=== PATIENT | female | born 1985 | race Caucasian/White ===

== ENCOUNTER 2023-06-06 06:31 | Day surgery (SDC) | payer OTHER ==
[2023-06-04 10:55] VITALS: BMI 22.1
[2023-06-06] MEDS ORDERED: KETAMINE HCL 500 MG/10 ML VIAL ONE (07:24)
[2023-06-06 08:29] VITALS: BP 128/63; PULSE 64; RESP 18; TEMP 97.1
== END 2023-06-06 08:45 | disposition home or self-care (01) ==
LOC: FECT 06:31
PROVIDERS: ATTEND Student in an Organized Health Care Education/Training Program
PROC: GZB4ZZZ Other Electroconvulsive Therapy (ICD-10-PCS; principal; 2023-06-06 07:45)
DX: F32.A Depression, unspecified (principal)
CPT/HCPCS: 81025; 90870; 94760

== ENCOUNTER 2023-06-10 08:32 | Day surgery (SDC) | payer OTHER ==
[2023-06-06 16:23] VITALS: BMI 22.1
[2023-06-10 08:59] VITALS: RESP 16
[2023-06-10] MEDS ORDERED: KETAMINE HCL 500 MG/10 ML VIAL ONE (09:36)
[2023-06-10] MEDS ORDERED: PROMETHAZINE HCL 25 MG/1 ML VIAL IVPB PRN (10:07)
[2023-06-10] MEDS ORDERED: ACETAMINOPHEN 325 MG TABLET (FP) PO PRN (10:07)
[2023-06-10] MEDS ORDERED: LACTATED RINGERS SOLUTION 1,000 ML IV SCH (10:15)
[2023-06-10] MEDS ORDERED: ACETAMINOPHEN 325 MG TABLET (FP) ONE (10:48)
[2023-06-10] MEDS ORDERED: ACETAMINOPHEN 325 MG TABLET (FP) PO ONE (10:50)
[2023-06-10 10:58] VITALS: BP 122/67; TEMP 97.4
[2023-06-10 11:31] VITALS: PULSE 60
== END 2023-06-10 11:30 | disposition home or self-care (01) ==
LOC: FECT 08:32
PROVIDERS: ATTEND Psychiatry & Neurology Psychiatry
PROC: GZB4ZZZ Other Electroconvulsive Therapy (ICD-10-PCS; principal; 2023-06-10 09:48)
DX: F33.2 Major depressive disorder, recurrent severe without psychotic features (principal)
CPT/HCPCS: 81025; 90870; 94760

== ENCOUNTER 2023-06-12 09:15 | Day surgery (SDC) | payer OTHER ==
[2023-05-23 17:26] VITALS: BMI 22.1
[2023-06-12 09:37] VITALS: RESP 18
[2023-06-12] MEDS ORDERED: KETAMINE HCL 500 MG/10 ML VIAL ONE (11:17)
[2023-06-12] MEDS ORDERED: ONDANSETRON 4 MG/2 ML VIAL ONE (11:17)
[2023-06-12] MEDS ORDERED: SUCCINYLCHOLINE CHLORIDE 200 MG/10 ML SYRINGE ONE (11:17)
[2023-06-12] MEDS ORDERED: KETOROLAC TROMETHAMINE 30 MG/1 ML VIAL ONE (11:17)
[2023-06-12] MEDS ORDERED: PROPOFOL 20 ML ONE (11:17)
[2023-06-12] MEDS ORDERED: GLYCOPYRROLATE 0.2 MG/1 ML VIAL ONE (11:21)
[2023-06-12] MEDS ORDERED: ACETAMINOPHEN 325 MG TABLET (FP) ONE (12:10)
[2023-06-12] MEDS ORDERED: ACETAMINOPHEN 325 MG TABLET (FP) PO PRN (12:19)
[2023-06-12] MEDS ORDERED: LACTATED RINGERS SOLUTION 1,000 ML IV SCH (12:30)
[2023-06-12 12:37] VITALS: TEMP 98
[2023-06-12 13:51] VITALS: BP 112/75; PULSE 59
== END 2023-06-12 13:00 | disposition home or self-care (01) ==
LOC: FECT 09:15
PROVIDERS: ATTEND Psychiatry & Neurology Psychiatry
PROC: GZB4ZZZ Other Electroconvulsive Therapy (ICD-10-PCS; principal; 2023-06-12 11:23)
DX: F32.A Depression, unspecified (principal)
CPT/HCPCS: 90870; 94760

== ENCOUNTER 2023-06-13 07:47 | Day surgery (SDC) | payer OTHER ==
[2023-06-09 08:26] VITALS: BMI 22.1
[2023-06-13] MEDS ORDERED: KETAMINE HCL 500 MG/10 ML VIAL ONE (09:31)
[2023-06-13 10:21] VITALS: TEMP 98
[2023-06-13] MEDS: ACETAMINOPHEN 325 MG TABLET (FP) ONE ×2 (10:37→10:55)
[2023-06-13] MEDS ORDERED: ACETAMINOPHEN 325 MG TABLET (FP) PO ONE (10:54)
[2023-06-13 11:29] VITALS: RESP 18
[2023-06-13 11:30] VITALS: BP 124/64; PULSE 64
== END 2023-06-13 11:20 | disposition home or self-care (01) ==
LOC: FECT 07:47
PROVIDERS: ATTEND Psychiatry & Neurology Psychiatry
PROC: GZB4ZZZ Other Electroconvulsive Therapy (ICD-10-PCS; principal; 2023-06-13 09:46)
DX: F33.2 Major depressive disorder, recurrent severe without psychotic features (principal)
CPT/HCPCS: 90870; 94760

== ENCOUNTER 2023-06-17 11:15 | Day surgery (SDC) | payer OTHER ==
[2023-06-17] MEDS ORDERED: KETAMINE HCL 500 MG/10 ML VIAL ONE (12:12)
[2023-06-17 13:04] VITALS: BMI 22.1
[2023-06-17 13:07] VITALS: RESP 19; TEMP 98.3
[2023-06-17 13:16] VITALS: BP 120/68; PULSE 67
== END 2023-06-17 13:40 | disposition home or self-care (01) ==
LOC: FECT 11:15
PROVIDERS: ATTEND Psychiatry & Neurology Psychiatry
PROC: GZB4ZZZ Other Electroconvulsive Therapy (ICD-10-PCS; principal; 2023-06-17 12:23)
DX: F33.2 Major depressive disorder, recurrent severe without psychotic features (principal)
CPT/HCPCS: 81025; 90870; 94760

== ENCOUNTER 2023-06-19 09:54 | Day surgery (SDC) | payer OTHER ==
[2023-05-29 17:23] VITALS: BMI 20.5
[2023-06-19] MEDS ORDERED: KETAMINE HCL 500 MG/10 ML VIAL ONE (11:10)
[2023-06-19 12:28] VITALS: RESP 18; TEMP 98
[2023-06-19 13:08] VITALS: BP 108/68; PULSE 61
== END 2023-06-19 12:45 | disposition home or self-care (01) ==
LOC: FECT 09:54
PROVIDERS: ATTEND Psychiatry & Neurology Psychiatry
PROC: GZB4ZZZ Other Electroconvulsive Therapy (ICD-10-PCS; principal; 2023-06-19 11:25)
DX: F32.A Depression, unspecified (principal)
CPT/HCPCS: 90870; 94760

== ENCOUNTER 2023-06-20 08:18 | Day surgery (SDC) | payer OTHER ==
[2023-06-13 09:51] VITALS: BMI 22.1
[2023-06-20] MEDS ORDERED: KETAMINE HCL 500 MG/10 ML VIAL ONE (09:34)
[2023-06-20 10:39] VITALS: RESP 16; TEMP 97.6
[2023-06-20 10:54] VITALS: BP 139/78; PULSE 74
== END 2023-06-20 11:10 | disposition home or self-care (01) ==
LOC: FECT 08:18
PROVIDERS: ATTEND Psychiatry & Neurology Psychiatry
PROC: GZB4ZZZ Other Electroconvulsive Therapy (ICD-10-PCS; principal; 2023-06-20 09:42)
DX: F32.A Depression, unspecified (principal)
CPT/HCPCS: 90870; 94760

== ENCOUNTER 2023-06-26 08:01 | Day surgery (SDC) | payer OTHER ==
[2023-06-20 07:07] VITALS: BMI 20.5
[2023-06-26] MEDS ORDERED: LACTATED RINGERS SOLUTION 1,000 ML IV SCH (10:30)
[2023-06-26 10:43] VITALS: TEMP 97.4
[2023-06-26 11:37] VITALS: BP 102/61; PULSE 58; RESP 19
== END 2023-06-26 11:10 | disposition home or self-care (01) ==
LOC: FECT 08:01
PROVIDERS: ATTEND Psychiatry & Neurology Psychiatry
PROC: GZB4ZZZ Other Electroconvulsive Therapy (ICD-10-PCS; principal; 2023-06-26 09:45)
DX: F32.A Depression, unspecified (principal)
CPT/HCPCS: 90870; 94760

== ENCOUNTER 2023-07-01 09:48 | Day surgery (SDC) | payer OTHER ==
[2023-06-27 14:57] VITALS: BMI 20.5
[2023-07-01] MEDS ORDERED: LACTATED RINGERS SOLUTION 1,000 ML IV SCH (11:15)
[2023-07-01 12:50] VITALS: TEMP 98
[2023-07-01 13:32] VITALS: BP 110/68; PULSE 78; RESP 18
== END 2023-07-01 13:35 | disposition home or self-care (01) ==
LOC: FECT 09:48
PROVIDERS: ATTEND Student in an Organized Health Care Education/Training Program
PROC: GZB4ZZZ Other Electroconvulsive Therapy (ICD-10-PCS; principal; 2023-07-01 12:30)
DX: F33.2 Major depressive disorder, recurrent severe without psychotic features (principal)
CPT/HCPCS: 81025; 90870; 94760

== ENCOUNTER 2023-07-03 11:27 | Day surgery (SDC) | payer OTHER ==
[2023-06-30 12:21] VITALS: BMI 20.5
[2023-07-03] MEDS ORDERED: KETAMINE HCL 500 MG/10 ML VIAL ONE (12:43)
[2023-07-03] MEDS ORDERED: ONDANSETRON 4 MG/2 ML VIAL IVPUSH PRN (13:08)
[2023-07-03] MEDS ORDERED: LACTATED RINGERS SOLUTION 1,000 ML IV SCH (13:15)
[2023-07-03 13:58] VITALS: BP 130/66; PULSE 88; RESP 16; TEMP 97.8
== END 2023-07-03 14:02 | disposition home or self-care (01) ==
LOC: FECT 11:27
PROVIDERS: ATTEND Student in an Organized Health Care Education/Training Program
PROC: GZB4ZZZ Other Electroconvulsive Therapy (ICD-10-PCS; principal; 2023-07-03 12:55)
DX: F32.A Depression, unspecified (principal)
CPT/HCPCS: 90870; 94760

== ENCOUNTER 2023-07-08 12:12 | Day surgery (SDC) | payer OTHER ==
[2023-07-04 17:11] VITALS: BMI 20.5
[2023-07-08 14:35] VITALS: TEMP 97.5
[2023-07-08 15:09] VITALS: BP 104/45; PULSE 64; RESP 16
== END 2023-07-08 15:10 | disposition home or self-care (01) ==
LOC: FECT 12:12
PROVIDERS: ATTEND Psychiatry & Neurology Psychiatry
PROC: GZB4ZZZ Other Electroconvulsive Therapy (ICD-10-PCS; principal; 2023-07-08 14:10)
DX: F32.A Depression, unspecified (principal)
CPT/HCPCS: 81025; 90870; 94760

== ENCOUNTER 2023-07-11 09:11 | Day surgery (SDC) | payer OTHER ==
[2023-07-01 11:54] VITALS: BMI 20.5
[2023-07-11 09:29] VITALS: RESP 18
[2023-07-11] MEDS ORDERED: KETAMINE HCL 500 MG/10 ML VIAL ONE (11:18)
[2023-07-11 12:21] VITALS: PULSE 67; TEMP 97.4
[2023-07-11 13:01] VITALS: BP 112/64
== END 2023-07-11 13:01 | disposition home or self-care (01) ==
LOC: FECT 09:11
PROVIDERS: ATTEND Student in an Organized Health Care Education/Training Program
PROC: GZB4ZZZ Other Electroconvulsive Therapy (ICD-10-PCS; principal; 2023-07-11 11:27)
DX: F32.A Depression, unspecified (principal)
CPT/HCPCS: 90870; 94760

== ENCOUNTER 2023-07-15 09:16 | Day surgery (SDC) | payer OTHER ==
[2023-07-11 14:01] VITALS: BMI 20.5
[2023-07-15] MEDS ORDERED: PROPOFOL 20 ML ONE (10:57)
[2023-07-15] MEDS ORDERED: KETOROLAC TROMETHAMINE 30 MG/1 ML VIAL ONE (10:58)
[2023-07-15] MEDS ORDERED: ONDANSETRON 4 MG/2 ML VIAL ONE (10:58)
[2023-07-15] MEDS ORDERED: SUCCINYLCHOLINE CHLORIDE 200 MG/10 ML SYRINGE ONE (10:59)
[2023-07-15] MEDS ORDERED: GLYCOPYRROLATE 0.2 MG/1 ML VIAL ONE (11:05)
[2023-07-15 12:03] VITALS: RESP 19; TEMP 98.2
[2023-07-15 12:08] VITALS: BP 102/62; PULSE 58
== END 2023-07-15 12:05 | disposition home or self-care (01) ==
LOC: FECT 09:16
PROVIDERS: ATTEND Student in an Organized Health Care Education/Training Program
PROC: GZB4ZZZ Other Electroconvulsive Therapy (ICD-10-PCS; principal; 2023-07-15 11:09)
DX: F33.2 Major depressive disorder, recurrent severe without psychotic features (principal)
CPT/HCPCS: 81025; 90870; 94760

== ENCOUNTER 2023-07-22 09:03 | Day surgery (SDC) | payer OTHER ==
[2023-07-16 07:01] VITALS: BMI 20.5
[2023-07-22] MEDS ORDERED: KETAMINE HCL 500 MG/10 ML VIAL ONE (09:58)
[2023-07-22 11:34] VITALS: RESP 18
[2023-07-22 11:48] VITALS: BP 133/79; PULSE 63; TEMP 98
== END 2023-07-22 11:50 | disposition home or self-care (01) ==
LOC: FECT 09:03
PROVIDERS: ATTEND Student in an Organized Health Care Education/Training Program
PROC: GZB4ZZZ Other Electroconvulsive Therapy (ICD-10-PCS; principal; 2023-07-22 10:17)
DX: F32.A Depression, unspecified (principal)
CPT/HCPCS: 81025; 90870; 94760

== ENCOUNTER 2023-07-29 12:38 | Day surgery (SDC) | payer OTHER ==
[2023-07-29 12:56] VITALS: BMI 20.5
[2023-07-29] MEDS ORDERED: KETAMINE HCL 100 MG/ML - 5ML VIAL ONE (14:21)
[2023-07-29] MEDS ORDERED: GLYCOPYRROLATE 0.2 MG/1 ML VIAL ONE (14:34)
[2023-07-29 15:38] VITALS: RESP 18; TEMP 97.4
[2023-07-29 15:57] VITALS: BP 120/74; PULSE 68
== END 2023-07-29 16:03 | disposition home or self-care (01) ==
LOC: FECT 12:38
PROVIDERS: ATTEND Psychiatry & Neurology Psychiatry
PROC: GZB4ZZZ Other Electroconvulsive Therapy (ICD-10-PCS; principal; 2023-07-29 14:30)
DX: F33.2 Major depressive disorder, recurrent severe without psychotic features (principal)
CPT/HCPCS: 81025; 90870; 94760

== ENCOUNTER 2023-08-01 10:27 | Day surgery (SDC) | payer OTHER ==
[2023-07-23 10:47] VITALS: BMI 20.5
[2023-08-01] MEDS ORDERED: KETAMINE HCL 500 MG/10 ML VIAL ONE (12:22)
[2023-08-01] MEDS ORDERED: GLYCOPYRROLATE 0.2 MG/1 ML VIAL ONE (12:22)
[2023-08-01] MEDS ORDERED: SUCCINYLCHOLINE CHLORIDE 200 MG/10 ML SYRINGE ONE (12:22)
[2023-08-01] MEDS ORDERED: KETOROLAC TROMETHAMINE 30 MG/1 ML VIAL ONE (12:22)
[2023-08-01] MEDS ORDERED: ONDANSETRON 4 MG/2 ML VIAL ONE (12:22)
[2023-08-01] MEDS ORDERED: PROPOFOL 20 ML ONE (12:22)
[2023-08-01] MEDS ORDERED: ALPRAZolam 1 MG TABLET ONE (13:19)
[2023-08-01] MEDS ORDERED: ALPRAZolam 1 MG TABLET PO STA (14:00)
[2023-08-01 14:22] VITALS: RESP 18; TEMP 98.1
[2023-08-01 14:37] VITALS: BP 115/72; PULSE 84
== END 2023-08-01 14:40 | disposition home or self-care (01) ==
LOC: FECT 10:27
PROVIDERS: ATTEND Student in an Organized Health Care Education/Training Program
PROC: GZB4ZZZ Other Electroconvulsive Therapy (ICD-10-PCS; principal; 2023-08-01 12:28)
DX: F33.2 Major depressive disorder, recurrent severe without psychotic features (principal)
CPT/HCPCS: 90870; 94760

== ENCOUNTER 2023-08-05 11:00 | Day surgery (SDC) | payer OTHER ==
[2023-08-04 08:05] VITALS: BMI 20.5
[2023-08-05] MEDS ORDERED: KETAMINE HCL 100 MG/ML - 5ML VIAL ONE (12:39)
[2023-08-05 13:42] VITALS: RESP 16; TEMP 98.5
[2023-08-05 13:54] VITALS: BP 113/65; PULSE 68
== END 2023-08-05 14:11 | disposition home or self-care (01) ==
LOC: FECT 11:00
PROVIDERS: ATTEND Student in an Organized Health Care Education/Training Program
PROC: GZB4ZZZ Other Electroconvulsive Therapy (ICD-10-PCS; principal; 2023-08-05 12:49)
DX: F32.A Depression, unspecified (principal)
CPT/HCPCS: 81025; 90870; 94760

== ENCOUNTER 2023-08-07 08:40 | Day surgery (SDC) | payer OTHER ==
[2023-08-05 16:46] VITALS: BMI 20.5
[2023-08-07] MEDS ORDERED: KETAMINE HCL 100 MG/ML - 5ML VIAL ONE ×2 (10:17→10:54)
[2023-08-07 11:42] VITALS: RESP 19; TEMP 98
[2023-08-07 11:54] VITALS: BP 102/59; PULSE 62
== END 2023-08-07 12:10 | disposition home or self-care (01) ==
LOC: FECT 08:40
PROVIDERS: ATTEND Student in an Organized Health Care Education/Training Program
PROC: GZB4ZZZ Other Electroconvulsive Therapy (ICD-10-PCS; principal; 2023-08-07 10:42)
DX: F33.2 Major depressive disorder, recurrent severe without psychotic features (principal)
CPT/HCPCS: 90870; 94760

== ENCOUNTER 2023-08-12 10:37 | Day surgery (SDC) | payer OTHER ==
[2023-08-08 11:32] VITALS: BMI 20.5
[2023-08-12] MEDS ORDERED: KETAMINE HCL 100 MG/ML - 5ML VIAL ONE (12:11)
[2023-08-12 12:57] VITALS: TEMP 98.6
[2023-08-12 14:15] VITALS: RESP 18
[2023-08-12 14:17] VITALS: BP 135/85; PULSE 77
== END 2023-08-12 14:00 | disposition home or self-care (01) ==
LOC: FECT 10:37
PROVIDERS: ATTEND Student in an Organized Health Care Education/Training Program
PROC: GZB4ZZZ Other Electroconvulsive Therapy (ICD-10-PCS; principal; 2023-08-12 12:27)
DX: F33.2 Major depressive disorder, recurrent severe without psychotic features (principal)
CPT/HCPCS: 81025; 90870; 94760

== ENCOUNTER 2023-08-15 10:14 | Day surgery (SDC) | payer OTHER ==
[2023-08-13 13:32] VITALS: BMI 20.5
[2023-08-15] MEDS ORDERED: KETAMINE HCL 100 MG/ML - 5ML VIAL ONE (13:27)
[2023-08-15] MEDS ORDERED: ONDANSETRON 4 MG/2 ML VIAL ONE (13:28)
[2023-08-15] MEDS ORDERED: KETOROLAC TROMETHAMINE 30 MG/1 ML VIAL ONE (13:28)
[2023-08-15] MEDS ORDERED: DEXAMETHASONE SOD PHOSPHATE 4 MG/1 ML VIAL ONE (13:28)
[2023-08-15] MEDS ORDERED: SUCCINYLCHOLINE CHLORIDE 200 MG/10 ML SYRINGE ONE (13:28)
[2023-08-15 15:00] VITALS: BP 116/67; PULSE 74; RESP 18; TEMP 97.4
== END 2023-08-15 14:55 | disposition home or self-care (01) ==
LOC: FECT 10:14
PROVIDERS: ATTEND Psychiatry & Neurology Psychiatry
PROC: GZB4ZZZ Other Electroconvulsive Therapy (ICD-10-PCS; principal; 2023-08-15 13:33)
DX: F33.2 Major depressive disorder, recurrent severe without psychotic features (principal)
CPT/HCPCS: 90870; 94760

== ENCOUNTER 2023-08-19 09:42 | Day surgery (SDC) | payer OTHER ==
[2023-08-19 08:22] VITALS: BMI 20.5
[2023-08-19 10:01] VITALS: RESP 19
[2023-08-19] MEDS ORDERED: KETAMINE HCL 100 MG/ML - 5ML VIAL ONE (10:48)
[2023-08-19] MEDS ORDERED: SUCCINYLCHOLINE CHLORIDE 200 MG/10 ML SYRINGE ONE (10:59)
[2023-08-19] MEDS ORDERED: ONDANSETRON 4 MG/2 ML VIAL IVPUSH PRN (11:25)
[2023-08-19] MEDS ORDERED: LACTATED RINGERS SOLUTION 1,000 ML IV SCH (11:30)
[2023-08-19 16:04] VITALS: BP 112/68; PULSE 64; TEMP 98.2
== END 2023-08-19 12:10 | disposition home or self-care (01) ==
LOC: FECT 09:42
PROVIDERS: ATTEND Psychiatry & Neurology Psychiatry
PROC: GZB4ZZZ Other Electroconvulsive Therapy (ICD-10-PCS; principal; 2023-08-19 11:01)
DX: F33.2 Major depressive disorder, recurrent severe without psychotic features (principal)
CPT/HCPCS: 81025; 90870; 94760

== ENCOUNTER 2023-08-22 07:47 | Day surgery (SDC) | payer OTHER ==
[2023-08-19 10:43] VITALS: BMI 20.5
[2023-08-22 12:15] VITALS: RESP 18
[2023-08-22 12:29] VITALS: BP 104/64; TEMP 98.2
[2023-08-22 12:32] VITALS: PULSE 61
== END 2023-08-22 12:30 | disposition home or self-care (01) ==
LOC: FECT 07:47
PROVIDERS: ATTEND Student in an Organized Health Care Education/Training Program
PROC: GZB4ZZZ Other Electroconvulsive Therapy (ICD-10-PCS; principal; 2023-08-22 11:09)
DX: F32.A Depression, unspecified (principal)
CPT/HCPCS: 90870; 94760

== ENCOUNTER 2023-08-26 08:21 | Day surgery (SDC) | payer OTHER ==
[2023-08-22 13:28] VITALS: BMI 20.5
[2023-08-26] MEDS ORDERED: KETAMINE HCL 100 MG/ML - 5ML VIAL ONE (09:58)
[2023-08-26 11:07] VITALS: PULSE 60; RESP 18
[2023-08-26 11:29] VITALS: BP 120/68; TEMP 98
== END 2023-08-26 11:29 | disposition home or self-care (01) ==
LOC: FECT 08:21
PROVIDERS: ATTEND Student in an Organized Health Care Education/Training Program
PROC: GZB4ZZZ Other Electroconvulsive Therapy (ICD-10-PCS; principal; 2023-08-26 10:13)
DX: F33.2 Major depressive disorder, recurrent severe without psychotic features (principal)
CPT/HCPCS: 81025; 90870; 94760

== ENCOUNTER 2023-08-29 09:15 | Day surgery (SDC) | payer OTHER ==
[2023-08-22 13:46] VITALS: BMI 20.5
[2023-08-29] MEDS ORDERED: KETAMINE HCL 100 MG/ML - 5ML VIAL ONE (10:05)
[2023-08-29] MEDS ORDERED: ONDANSETRON 4 MG/2 ML VIAL IVPUSH PRN (11:42)
[2023-08-29] MEDS ORDERED: LACTATED RINGERS SOLUTION 1,000 ML IV SCH (11:45)
[2023-08-29 12:01] VITALS: RESP 18; TEMP 97.9
[2023-08-29 12:22] VITALS: BP 130/77; PULSE 61
== END 2023-08-29 12:30 | disposition home or self-care (01) ==
LOC: FECT 09:15
PROVIDERS: ATTEND Student in an Organized Health Care Education/Training Program
PROC: GZB4ZZZ Other Electroconvulsive Therapy (ICD-10-PCS; principal; 2023-08-29 11:03)
DX: F33.2 Major depressive disorder, recurrent severe without psychotic features (principal)
CPT/HCPCS: 90870; 94760

== ENCOUNTER 2023-09-02 10:13 | Day surgery (SDC) | payer OTHER ==
[2023-08-29 15:33] VITALS: BMI 20.5
[2023-09-02] MEDS ORDERED: SUCCINYLCHOLINE CHLORIDE 200 MG/10 ML SYRINGE ONE (12:03)
[2023-09-02] MEDS ORDERED: KETAMINE HCL 100 MG/ML - 5ML VIAL ONE (12:03)
[2023-09-02 12:57] VITALS: RESP 16
[2023-09-02 13:07] VITALS: TEMP 97.8
[2023-09-02 13:09] VITALS: BP 119/74; PULSE 90
== END 2023-09-02 13:28 | disposition home or self-care (01) ==
LOC: FECT 10:13
PROVIDERS: ATTEND Psychiatry & Neurology Psychiatry
PROC: GZB4ZZZ Other Electroconvulsive Therapy (ICD-10-PCS; principal; 2023-09-02 12:07)
DX: F32.A Depression, unspecified (principal)
CPT/HCPCS: 81025; 90870; 94760

== ENCOUNTER 2023-09-05 06:38 | Day surgery (SDC) | payer OTHER ==
[2023-09-02 14:18] VITALS: BMI 20.5
[2023-09-05] MEDS ORDERED: KETAMINE HCL 100 MG/ML - 5ML VIAL ONE (07:50)
[2023-09-05 09:55] VITALS: BP 137/77; PULSE 68; RESP 20; TEMP 98.2
== END 2023-09-05 09:20 | disposition home or self-care (01) ==
LOC: FASU 06:38 → FECT 06:38
PROVIDERS: ATTEND Psychiatry & Neurology Psychiatry
PROC: GZB4ZZZ Other Electroconvulsive Therapy (ICD-10-PCS; principal; 2023-09-05 07:55)
DX: F33.2 Major depressive disorder, recurrent severe without psychotic features (principal)
CPT/HCPCS: 90870; 94760

== ENCOUNTER 2023-09-09 08:17 | Day surgery (SDC) | payer OTHER ==
[2023-09-05 09:55] VITALS: BMI 20.5
[2023-09-09 08:50] VITALS: TEMP 97.9
[2023-09-09] MEDS ORDERED: KETAMINE HCL 100 MG/ML - 5ML VIAL ONE (09:15)
[2023-09-09] MEDS ORDERED: ONDANSETRON 4 MG/2 ML VIAL IVPUSH PRN (09:19)
[2023-09-09] MEDS ORDERED: LACTATED RINGERS SOLUTION 1,000 ML IV SCH (09:30)
[2023-09-09 10:47] VITALS: PULSE 68
[2023-09-09 11:26] VITALS: BP 116/71; RESP 18
== END 2023-09-09 11:27 | disposition home or self-care (01) ==
LOC: FECT 08:17
PROVIDERS: ATTEND Student in an Organized Health Care Education/Training Program
PROC: GZB4ZZZ Other Electroconvulsive Therapy (ICD-10-PCS; principal; 2023-09-09 10:15)
DX: F33.2 Major depressive disorder, recurrent severe without psychotic features (principal)
CPT/HCPCS: 81025; 90870; 94760

== ENCOUNTER 2023-09-11 11:30 | Day surgery (SDC) | payer OTHER ==
[2023-09-09 12:22] VITALS: BMI 20.5
[2023-09-11] MEDS ORDERED: KETAMINE HCL 100 MG/ML - 5ML VIAL ONE (12:26)
[2023-09-11 13:28] VITALS: RESP 18; TEMP 98.3
[2023-09-11 13:52] VITALS: BP 126/72; PULSE 74
== END 2023-09-11 14:39 | disposition home or self-care (01) ==
LOC: FECT 11:30
PROVIDERS: ATTEND Student in an Organized Health Care Education/Training Program
PROC: GZB4ZZZ Other Electroconvulsive Therapy (ICD-10-PCS; principal; 2023-09-11 12:42)
DX: F33.2 Major depressive disorder, recurrent severe without psychotic features (principal)
CPT/HCPCS: 90870; 94760

== ENCOUNTER 2023-09-16 09:57 | Day surgery (SDC) | payer OTHER ==
[2023-09-11 14:43] VITALS: BMI 20.5
[2023-09-16] MEDS ORDERED: KETAMINE HCL 100 MG/ML - 5ML VIAL ONE (12:06)
[2023-09-16] MEDS ORDERED: ALPRAZolam 2 MG TABLET ONE (13:18)
[2023-09-16 15:19] VITALS: RESP 18
[2023-09-16 15:42] VITALS: BP 128/78; PULSE 69; TEMP 98
== END 2023-09-16 15:15 | disposition home or self-care (01) ==
LOC: FECT 09:57
PROVIDERS: ATTEND Student in an Organized Health Care Education/Training Program
PROC: GZB4ZZZ Other Electroconvulsive Therapy (ICD-10-PCS; principal; 2023-09-16 12:19)
DX: F32.A Depression, unspecified (principal)
CPT/HCPCS: 81025; 90870; 94760

== ENCOUNTER 2023-09-18 09:57 | Day surgery (SDC) | payer OTHER ==
[2023-09-17 16:42] VITALS: BMI 20.5
[2023-09-18] MEDS ORDERED: KETAMINE HCL 100 MG/ML - 5ML VIAL ONE (12:09)
[2023-09-18 14:21] VITALS: RESP 16; TEMP 98.3
[2023-09-18 14:43] VITALS: BP 135/74; PULSE 69
== END 2023-09-18 14:25 | disposition home or self-care (01) ==
LOC: FECT 09:57
PROVIDERS: ATTEND Student in an Organized Health Care Education/Training Program
PROC: GZB4ZZZ Other Electroconvulsive Therapy (ICD-10-PCS; principal; 2023-09-18 12:40)
DX: F32.A Depression, unspecified (principal)
CPT/HCPCS: 90870; 94760

== ENCOUNTER 2023-09-23 09:26 | Day surgery (SDC) | payer OTHER ==
[2023-09-18 14:42] VITALS: BMI 20.5
[2023-09-23] MEDS ORDERED: KETAMINE HCL 100 MG/ML - 5ML VIAL ONE (10:53)
[2023-09-23] MEDS ORDERED: DEXAMETHASONE SOD PHOSPHATE 4 MG/1 ML VIAL ONE (10:56)
[2023-09-23] MEDS ORDERED: KETOROLAC TROMETHAMINE 30 MG/1 ML VIAL ONE (10:56)
[2023-09-23] MEDS ORDERED: ONDANSETRON 4 MG/2 ML VIAL ONE (10:56)
[2023-09-23] MEDS ORDERED: PROPOFOL 20 ML ONE (11:00)
[2023-09-23 11:24] VITALS: TEMP 98.7
[2023-09-23 11:58] VITALS: BP 120/72; PULSE 68; RESP 19
== END 2023-09-23 12:30 | disposition home or self-care (01) ==
LOC: FECT 09:26
PROVIDERS: ATTEND Student in an Organized Health Care Education/Training Program
PROC: GZB4ZZZ Other Electroconvulsive Therapy (ICD-10-PCS; principal; 2023-09-23 11:08)
DX: F32.A Depression, unspecified (principal)
CPT/HCPCS: 81025; 90870; 94760

== ENCOUNTER 2023-09-26 10:00 | Day surgery (SDC) | payer OTHER ==
[2023-09-23 16:13] VITALS: BMI 20.5
[2023-09-26] MEDS ORDERED: KETAMINE HCL 100 MG/ML - 5ML VIAL ONE (11:41)
[2023-09-26 12:29] VITALS: PULSE 65
[2023-09-26 12:32] VITALS: TEMP 97.6
[2023-09-26 13:15] VITALS: BP 110/64; RESP 18
== END 2023-09-26 13:18 | disposition home or self-care (01) ==
LOC: FECT 10:00
PROVIDERS: ATTEND Student in an Organized Health Care Education/Training Program
PROC: GZB4ZZZ Other Electroconvulsive Therapy (ICD-10-PCS; principal; 2023-09-26 11:54)
DX: F32.A Depression, unspecified (principal)
CPT/HCPCS: 90870; 94760

== ENCOUNTER 2023-09-30 08:29 | Day surgery (SDC) | payer OTHER ==
[2023-09-29 08:49] VITALS: BMI 20.5
[2023-09-30 09:15] VITALS: RESP 16; TEMP 98
[2023-09-30] MEDS ORDERED: KETAMINE HCL 100 MG/ML - 5ML VIAL ONE (09:38)
[2023-09-30 11:09] VITALS: BP 115/54; PULSE 84
== END 2023-09-30 11:09 | disposition home or self-care (01) ==
LOC: FECT 08:29
PROVIDERS: ATTEND Student in an Organized Health Care Education/Training Program
PROC: GZB4ZZZ Other Electroconvulsive Therapy (ICD-10-PCS; principal; 2023-09-30 09:54)
DX: F32.A Depression, unspecified (principal)
CPT/HCPCS: 84703; 90870; 94760

== ENCOUNTER 2023-10-03 10:24 | Day surgery (SDC) | payer OTHER ==
[2023-09-30 17:43] VITALS: BMI 20.5
[2023-10-03 10:41] VITALS: RESP 18; TEMP 98
[2023-10-03] MEDS ORDERED: KETAMINE HCL 100 MG/ML - 5ML VIAL ONE (12:09)
[2023-10-03 14:07] VITALS: BP 118/68; PULSE 62
== END 2023-10-03 14:02 | disposition home or self-care (01) ==
LOC: FECT 10:24
PROVIDERS: ATTEND Student in an Organized Health Care Education/Training Program
PROC: GZB4ZZZ Other Electroconvulsive Therapy (ICD-10-PCS; principal; 2023-10-03 12:37)
DX: F32.A Depression, unspecified (principal)
CPT/HCPCS: 90870; 94760

== ENCOUNTER 2023-10-10 09:23 | Day surgery (SDC) | payer OTHER ==
[2023-10-10 09:54] VITALS: RESP 16; BMI 20.5
[2023-10-10] MEDS ORDERED: KETAMINE HCL 100 MG/ML - 5ML VIAL ONE (11:49)
[2023-10-10] MEDS ORDERED: PROPOFOL 20 ML ONE (11:51)
[2023-10-10] MEDS ORDERED: KETOROLAC TROMETHAMINE 30 MG/1 ML VIAL ONE (11:58)
[2023-10-10] MEDS ORDERED: DEXAMETHASONE SOD PHOSPHATE 4 MG/1 ML VIAL ONE (11:58)
[2023-10-10] MEDS ORDERED: ONDANSETRON 4 MG/2 ML VIAL ONE (11:58)
[2023-10-10 12:47] VITALS: TEMP 98.3
[2023-10-10 13:08] VITALS: BP 98/53; PULSE 54
== END 2023-10-10 13:10 | disposition home or self-care (01) ==
LOC: FECT 09:23
PROVIDERS: ATTEND Student in an Organized Health Care Education/Training Program
PROC: GZB4ZZZ Other Electroconvulsive Therapy (ICD-10-PCS; principal; 2023-10-10 11:57)
DX: F32.A Depression, unspecified (principal)
CPT/HCPCS: 81025; 90870; 94760

== ENCOUNTER 2023-10-14 06:13 | Day surgery (SDC) | payer OTHER ==
[2023-10-10 12:24] VITALS: BMI 20.5
[2023-10-14] MEDS ORDERED: KETAMINE HCL 100 MG/ML - 5ML VIAL ONE (07:07)
[2023-10-14 08:07] VITALS: TEMP 98.7
[2023-10-14 08:35] VITALS: RESP 18
[2023-10-14 08:42] VITALS: BP 98/65; PULSE 55
== END 2023-10-14 08:35 | disposition home or self-care (01) ==
LOC: FECT 06:13
PROVIDERS: ATTEND Psychiatry & Neurology Psychiatry
PROC: GZB4ZZZ Other Electroconvulsive Therapy (ICD-10-PCS; principal; 2023-10-14 07:20)
DX: F32.A Depression, unspecified (principal)
CPT/HCPCS: 81025; 90870; 94760

== ENCOUNTER 2023-10-17 08:54 | Day surgery (SDC) | payer OTHER ==
[2023-10-14 13:36] VITALS: BMI 20.5
[2023-10-17 10:52] VITALS: PULSE 51; RESP 16; TEMP 98.4
[2023-10-17 11:08] VITALS: BP 95/58
== END 2023-10-17 11:44 | disposition home or self-care (01) ==
LOC: FECT 08:54
PROVIDERS: ATTEND Student in an Organized Health Care Education/Training Program
PROC: GZB4ZZZ Other Electroconvulsive Therapy (ICD-10-PCS; principal; 2023-10-17 10:13)
DX: F33.2 Major depressive disorder, recurrent severe without psychotic features (principal)
CPT/HCPCS: 90870; 94760

== ENCOUNTER 2023-10-21 10:34 | Day surgery (SDC) | payer OTHER ==
[2023-10-14 12:37] VITALS: BMI 20.5
[2023-10-21] MEDS ORDERED: KETAMINE HCL 100 MG/ML - 5ML VIAL ONE (12:28)
[2023-10-21 13:27] VITALS: RESP 19; TEMP 98.4
[2023-10-21 13:35] VITALS: BP 112/68; PULSE 65
== END 2023-10-21 13:47 | disposition home or self-care (01) ==
LOC: FECT 10:34
PROVIDERS: ATTEND Student in an Organized Health Care Education/Training Program
PROC: GZB4ZZZ Other Electroconvulsive Therapy (ICD-10-PCS; principal; 2023-10-21 12:40)
DX: F32.A Depression, unspecified (principal)
CPT/HCPCS: 81025; 90870; 94760

== ENCOUNTER 2023-10-24 11:48 | Day surgery (SDC) | payer OTHER ==
[2023-10-22 13:24] VITALS: BMI 20.5
[2023-10-24] MEDS ORDERED: KETAMINE HCL 100 MG/ML - 5ML VIAL ONE (13:34)
[2023-10-24 15:04] VITALS: RESP 18; TEMP 98
[2023-10-24 15:17] VITALS: BP 100/60; PULSE 56
== END 2023-10-24 15:25 | disposition home or self-care (01) ==
LOC: FECT 11:48
PROVIDERS: ATTEND Student in an Organized Health Care Education/Training Program
PROC: GZB4ZZZ Other Electroconvulsive Therapy (ICD-10-PCS; principal; 2023-10-24 14:08)
DX: F32.A Depression, unspecified (principal)
CPT/HCPCS: 90870; 94760

== ENCOUNTER 2023-10-28 09:25 | Day surgery (SDC) | payer OTHER ==
[2023-10-24 15:16] VITALS: BMI 20.5
[2023-10-28] MEDS ORDERED: KETAMINE HCL 100 MG/ML - 5ML VIAL ONE (11:20)
[2023-10-28 13:29] VITALS: RESP 16; TEMP 98.7
[2023-10-28 13:33] VITALS: BP 122/79; PULSE 84
== END 2023-10-28 13:15 | disposition home or self-care (01) ==
LOC: FECT 09:25
PROVIDERS: ATTEND Psychiatry & Neurology Psychiatry
PROC: GZB4ZZZ Other Electroconvulsive Therapy (ICD-10-PCS; principal; 2023-10-28 11:29)
DX: F32.A Depression, unspecified (principal)
CPT/HCPCS: 81025; 90870; 94760

== ENCOUNTER 2023-10-31 09:55 | Day surgery (SDC) | payer OTHER ==
[2023-10-31 10:16] VITALS: BMI 20.5
[2023-10-31 12:28] VITALS: RESP 18
[2023-10-31 12:30] VITALS: PULSE 70; TEMP 97.4
[2023-10-31 12:58] VITALS: BP 130/54
== END 2023-10-31 12:50 | disposition home or self-care (01) ==
LOC: FECT 09:55
PROVIDERS: ATTEND Student in an Organized Health Care Education/Training Program
PROC: GZB4ZZZ Other Electroconvulsive Therapy (ICD-10-PCS; principal; 2023-10-31 11:00)
DX: F33.2 Major depressive disorder, recurrent severe without psychotic features (principal)
CPT/HCPCS: 90870; 94760

== ENCOUNTER 2023-11-04 10:01 | Day surgery (SDC) | payer OTHER ==
[2023-10-29 15:37] VITALS: BMI 20.5
[2023-11-04] MEDS ORDERED: ONDANSETRON 4 MG/2 ML VIAL IVPUSH PRN (11:07)
[2023-11-04] MEDS ORDERED: LACTATED RINGERS SOLUTION 1,000 ML IV SCH (11:15)
[2023-11-04] MEDS ORDERED: ONDANSETRON 4 MG/2 ML VIAL ONE (11:20)
[2023-11-04] MEDS ORDERED: PROPOFOL 20 ML ONE (11:20)
[2023-11-04] MEDS ORDERED: KETOROLAC TROMETHAMINE 30 MG/1 ML VIAL ONE (11:20)
[2023-11-04] MEDS ORDERED: KETAMINE HCL 200 MG/20 ML VIAL ONE (11:20)
[2023-11-04] MEDS ORDERED: SUCCINYLCHOLINE CHLORIDE 200 MG/10 ML SYRINGE ONE (11:20)
[2023-11-04 11:42] VITALS: RESP 16
[2023-11-04 12:10] VITALS: TEMP 98.6
[2023-11-04 13:03] VITALS: BP 115/68; PULSE 66
== END 2023-11-04 13:40 | disposition home or self-care (01) ==
LOC: FECT 10:01
PROVIDERS: ATTEND Student in an Organized Health Care Education/Training Program
PROC: GZB4ZZZ Other Electroconvulsive Therapy (ICD-10-PCS; principal; 2023-11-04 11:27)
DX: F33.2 Major depressive disorder, recurrent severe without psychotic features (principal)
CPT/HCPCS: 81025; 90870; 94760

== ENCOUNTER 2023-11-07 09:53 | Day surgery (SDC) | payer OTHER ==
[2023-11-05 14:54] VITALS: BMI 20.5
[2023-11-07 10:13] VITALS: RESP 18; TEMP 97.2
[2023-11-07] MEDS ORDERED: KETAMINE HCL 100 MG/ML - 5ML VIAL ONE (11:36)
[2023-11-07 13:36] VITALS: BP 125/67; PULSE 69
== END 2023-11-07 13:10 | disposition home or self-care (01) ==
LOC: FECT 09:53
PROVIDERS: ATTEND Student in an Organized Health Care Education/Training Program
PROC: GZB4ZZZ Other Electroconvulsive Therapy (ICD-10-PCS; principal; 2023-11-07 11:50)
DX: F32.A Depression, unspecified (principal)
CPT/HCPCS: 90870; 94760

== ENCOUNTER 2023-11-11 09:56 | Day surgery (SDC) | payer OTHER ==
[2023-11-07 17:03] VITALS: BMI 20.5
[2023-11-11] MEDS ORDERED: KETAMINE HCL 100 MG/ML - 5ML VIAL ONE (12:00)
[2023-11-11 13:15] VITALS: RESP 18; TEMP 98
[2023-11-11 13:31] VITALS: BP 118/68; PULSE 65
== END 2023-11-11 13:35 | disposition home or self-care (01) ==
LOC: FECT 09:56
PROVIDERS: ATTEND Student in an Organized Health Care Education/Training Program
PROC: GZB4ZZZ Other Electroconvulsive Therapy (ICD-10-PCS; principal; 2023-11-11 12:14)
DX: F32.A Depression, unspecified (principal)
CPT/HCPCS: 81025; 90870; 94760

== ENCOUNTER 2023-11-14 11:29 | Day surgery (SDC) | payer OTHER ==
[2023-11-14 11:52] VITALS: BMI 20.5
[2023-11-14] MEDS ORDERED: KETAMINE HCL 100 MG/ML - 5ML VIAL ONE (12:13)
[2023-11-14 13:09] VITALS: TEMP 97.9
[2023-11-14 13:12] VITALS: RESP 18
[2023-11-14 17:34] VITALS: BP 121/61; PULSE 61
== END 2023-11-14 14:00 | disposition home or self-care (01) ==
LOC: FECT 11:29
PROVIDERS: ATTEND Student in an Organized Health Care Education/Training Program
PROC: GZB4ZZZ Other Electroconvulsive Therapy (ICD-10-PCS; principal; 2023-11-14 12:32)
DX: F32.A Depression, unspecified (principal)
CPT/HCPCS: 90870; 94760

== ENCOUNTER 2023-11-20 09:20 | Day surgery (SDC) | payer OTHER ==
[2023-11-17 11:18] VITALS: BMI 20.5
[2023-11-20] MEDS ORDERED: KETAMINE HCL 100 MG/ML - 5ML VIAL ONE (09:40)
[2023-11-20 10:40] LABS: ALBUMIN 4.9 g/dl (3.4-5.0); BILIRUBIN,TOTAL 1.1 mg/dl (0.2-1); CALCIUM 10.2 mg/dl (8.5-10.1); CREATININE 0.9 mg/dl (0.6-1.3); POTASSIUM 4.6 mmol/L (3.5-5.1); TOT PROT 7.7 g/dl (6.4-8.2)
[2023-11-20 11:45] VITALS: TEMP 97.7
[2023-11-20 11:45] LABS: BASO % 0.9 % (0-2.0); EOS % 8.4 % (0-4.5); HEMATOCRIT 40.8 % (32.4-45.2); HEMOGLOBIN 13.4 GM/dL (10.7-15.3); LYMPH % 43.2 % (8-40); MCH 30.2 pg (25.7-33.7); MCHC 32.8 g/dl (32.0-36.0); MEAN CELL VOLUME 92.3 fl (80-96); MEAN PLT VOLUME 9.7 fl (7.5-11.1); MONO % 7.4 % (3.8-10.2); NEUT % 40.1 % (42.8-82.8); PLATELET COUNT 383 10^3/uL (134-434); RBC 4.42 M/mm3 (3.60-5.2); RDW 13.9 % (11.6-15.6); WHITE BLOOD COUNT 8.1 K/mm3 (4.0-10.0)
[2023-11-20 12:21] VITALS: BP 122/74; PULSE 78; RESP 18
== END 2023-11-20 12:15 | disposition home or self-care (01) ==
LOC: FECT 09:20
PROVIDERS: ATTEND Student in an Organized Health Care Education/Training Program
PROC: GZB4ZZZ Other Electroconvulsive Therapy (ICD-10-PCS; principal; 2023-11-20 10:55)
DX: F33.2 Major depressive disorder, recurrent severe without psychotic features (principal)
CPT/HCPCS: 36415; 80053; 81025; 85025; 90870; 93005; 94760

== ENCOUNTER 2023-11-27 10:12 | Day surgery (SDC) | payer OTHER ==
[2023-11-21 08:57] VITALS: BMI 20.5
[2023-11-27] MEDS ORDERED: KETAMINE HCL 100 MG/ML - 5ML VIAL ONE (11:06)
[2023-11-27 12:25] VITALS: TEMP 97.9
[2023-11-27 12:30] VITALS: BP 119/78; PULSE 56; RESP 18
== END 2023-11-27 12:58 | disposition home or self-care (01) ==
LOC: FECT 10:12 → FASU 10:12
PROVIDERS: ATTEND Student in an Organized Health Care Education/Training Program
PROC: GZB4ZZZ Other Electroconvulsive Therapy (ICD-10-PCS; principal; 2023-11-27 11:30)
DX: F33.2 Major depressive disorder, recurrent severe without psychotic features (principal)
CPT/HCPCS: 81025; 90870; 94760

== ENCOUNTER 2023-12-04 10:13 | Day surgery (SDC) | payer OTHER ==
[2023-11-28 16:04] VITALS: BMI 20.5
[2023-12-04] MEDS ORDERED: KETAMINE HCL 100 MG/ML - 5ML VIAL ONE (11:38)
[2023-12-04 12:55] VITALS: TEMP 97.2
[2023-12-04 13:13] VITALS: BP 114/58; PULSE 70; RESP 18
== END 2023-12-04 13:05 | disposition home or self-care (01) ==
LOC: FECT 10:13
PROVIDERS: ATTEND Student in an Organized Health Care Education/Training Program
PROC: GZB4ZZZ Other Electroconvulsive Therapy (ICD-10-PCS; principal; 2023-12-04 11:48)
DX: F32.A Depression, unspecified (principal)
CPT/HCPCS: 81025; 90870; 94760

== ENCOUNTER 2023-12-12 10:51 | Day surgery (SDC) | payer OTHER ==
[2023-12-05 14:06] VITALS: BMI 20.5
[2023-12-12] MEDS ORDERED: PROPOFOL 20 ML ONE (12:08)
[2023-12-12] MEDS ORDERED: KETAMINE HCL 100 MG/ML - 5ML VIAL ONE (12:08)
[2023-12-12] MEDS ORDERED: ONDANSETRON 4 MG/2 ML VIAL ONE (12:09)
[2023-12-12] MEDS ORDERED: DEXAMETHASONE SOD PHOSPHATE 4 MG/1 ML VIAL ONE (12:09)
[2023-12-12] MEDS ORDERED: KETOROLAC TROMETHAMINE 30 MG/1 ML VIAL ONE (12:09)
[2023-12-12 12:40] VITALS: RESP 16
[2023-12-12 13:28] VITALS: TEMP 97.4
[2023-12-12 13:30] VITALS: BP 92/54; PULSE 75
== END 2023-12-12 13:25 | disposition home or self-care (01) ==
LOC: FECT 10:51
PROVIDERS: ATTEND Student in an Organized Health Care Education/Training Program
PROC: GZB4ZZZ Other Electroconvulsive Therapy (ICD-10-PCS; principal; 2023-12-12 12:13)
DX: F33.2 Major depressive disorder, recurrent severe without psychotic features (principal)
CPT/HCPCS: 81025; 90870; 94760

== ENCOUNTER 2023-12-19 10:59 | Day surgery (SDC) | payer OTHER ==
[2023-12-19 11:32] VITALS: BMI 20.5
[2023-12-19] MEDS ORDERED: KETAMINE HCL 100 MG/ML - 5ML VIAL ONE (12:59)
[2023-12-19 13:31] VITALS: RESP 18
[2023-12-19 14:18] VITALS: PULSE 56; TEMP 97.2
[2023-12-19 14:26] VITALS: BP 98/50
== END 2023-12-19 14:35 | disposition home or self-care (01) ==
LOC: FECT 10:59
PROVIDERS: ATTEND Student in an Organized Health Care Education/Training Program
PROC: GZB4ZZZ Other Electroconvulsive Therapy (ICD-10-PCS; principal; 2023-12-19 13:15)
DX: F32.A Depression, unspecified (principal)
CPT/HCPCS: 81025; 90870; 94760

== ENCOUNTER 2023-12-30 09:55 | Day surgery (SDC) | payer OTHER ==
[2023-12-26 11:28] VITALS: BMI 20.5
[2023-12-30] MEDS ORDERED: KETAMINE HCL 100 MG/ML - 5ML VIAL ONE (11:12)
[2023-12-30 12:27] VITALS: RESP 19; TEMP 98
[2023-12-30 12:29] VITALS: BP 126/72; PULSE 67
== END 2023-12-30 12:38 | disposition home or self-care (01) ==
LOC: FECT 09:55
PROVIDERS: ATTEND Student in an Organized Health Care Education/Training Program
PROC: GZB4ZZZ Other Electroconvulsive Therapy (ICD-10-PCS; principal; 2023-12-30 11:31)
DX: F32.A Depression, unspecified (principal)
CPT/HCPCS: 81025; 90870; 94760

== ENCOUNTER 2024-01-08 09:10 | Day surgery (SDC) | payer OTHER ==
[2024-01-08 09:35] VITALS: BMI 20.2
[2024-01-08] MEDS ORDERED: KETAMINE HCL 100 MG/ML - 5ML VIAL ONE (10:20)
[2024-01-08] MEDS ORDERED: PROMETHAZINE HCL 25 MG/1 ML VIAL IVPB PRN (12:09)
[2024-01-08] MEDS ORDERED: ACETAMINOPHEN 325 MG TABLET (FP) PO PRN (12:09)
[2024-01-08 12:13] VITALS: RESP 18; TEMP 97.8
[2024-01-08] MEDS ORDERED: LACTATED RINGERS SOLUTION 1,000 ML IV SCH (12:15)
[2024-01-08 13:21] VITALS: BP 127/67; PULSE 69
== END 2024-01-08 12:15 | disposition home or self-care (01) ==
LOC: FECT 09:10
PROVIDERS: ATTEND Student in an Organized Health Care Education/Training Program
PROC: GZB4ZZZ Other Electroconvulsive Therapy (ICD-10-PCS; principal; 2024-01-08 10:50)
DX: F32.A Depression, unspecified (principal)
CPT/HCPCS: 81025; 90870; 94760

== ENCOUNTER 2024-01-15 10:33 | Day surgery (SDC) | payer OTHER ==
[2024-01-12 07:17] VITALS: BMI 20.2
[2024-01-15] MEDS ORDERED: KETAMINE HCL 100 MG/ML - 5ML VIAL ONE (12:21)
[2024-01-15 13:45] VITALS: RESP 18; TEMP 97.8
[2024-01-15 14:07] VITALS: BP 110/68; PULSE 68
== END 2024-01-15 13:57 | disposition home or self-care (01) ==
LOC: FECT 10:33
PROVIDERS: ATTEND Student in an Organized Health Care Education/Training Program
PROC: GZB4ZZZ Other Electroconvulsive Therapy (ICD-10-PCS; principal; 2024-01-15 12:47)
DX: F32.A Depression, unspecified (principal)
CPT/HCPCS: 81025; 90870; 94760

== ENCOUNTER 2024-01-23 05:56 | Day surgery (SDC) | payer OTHER ==
[2024-01-15 15:32] VITALS: BMI 20.2
[2024-01-23] MEDS ORDERED: KETAMINE HCL 100 MG/ML - 5ML VIAL ONE (07:21)
[2024-01-23] MEDS ORDERED: SUCCINYLCHOLINE CHLORIDE 200 MG/10 ML SYRINGE ONE (08:11)
[2024-01-23 08:56] VITALS: RESP 18; TEMP 97.8
[2024-01-23 10:35] VITALS: BP 118/72; PULSE 72
== END 2024-01-23 09:40 | disposition home or self-care (01) ==
LOC: FECT 05:56
PROVIDERS: ATTEND Psychiatry & Neurology Psychiatry
PROC: GZB4ZZZ Other Electroconvulsive Therapy (ICD-10-PCS; principal; 2024-01-23 07:47)
DX: F33.2 Major depressive disorder, recurrent severe without psychotic features (principal)
CPT/HCPCS: 81025; 90870; 94760

== ENCOUNTER 2024-01-30 11:35 | Day surgery (SDC) | payer OTHER ==
[2024-01-26 09:36] VITALS: BMI 20.2
[2024-01-30] MEDS ORDERED: KETAMINE HCL 100 MG/ML - 5ML VIAL ONE (12:36)
[2024-01-30 13:14] VITALS: RESP 16
[2024-01-30] MEDS ORDERED: LACTATED RINGERS SOLUTION 1,000 ML IV SCH (13:45)
[2024-01-30 13:54] VITALS: TEMP 97.8
[2024-01-30 14:04] VITALS: BP 128/66; PULSE 58
== END 2024-01-30 14:05 | disposition home or self-care (01) ==
LOC: FECT 11:35
PROVIDERS: ATTEND Student in an Organized Health Care Education/Training Program
PROC: GZB4ZZZ Other Electroconvulsive Therapy (ICD-10-PCS; principal; 2024-01-30 12:49)
DX: F33.2 Major depressive disorder, recurrent severe without psychotic features (principal)
CPT/HCPCS: 81025; 90870; 94760

== ENCOUNTER 2024-02-13 05:59 | Day surgery (SDC) | payer OTHER ==
[2024-02-02 12:17] VITALS: BMI 20.2
[2024-02-13] MEDS ORDERED: KETAMINE HCL 100 MG/ML - 5ML VIAL ONE (07:33)
[2024-02-13 08:13] VITALS: RESP 16
[2024-02-13 08:51] VITALS: BP 107/65; PULSE 66; TEMP 98.2
== END 2024-02-13 09:21 | disposition home or self-care (01) ==
LOC: FECT 05:59
PROVIDERS: ATTEND Student in an Organized Health Care Education/Training Program
PROC: GZB4ZZZ Other Electroconvulsive Therapy (ICD-10-PCS; principal; 2024-02-13 07:48)
DX: F32.A Depression, unspecified (principal)
CPT/HCPCS: 81025; 90870; 94760

== ENCOUNTER 2024-03-05 07:57 | Day surgery (SDC) | payer OTHER ==
[2024-03-01 17:03] VITALS: BMI 20.2
[2024-03-05] MEDS ORDERED: KETAMINE HCL 100 MG/ML - 5ML VIAL ONE (09:52)
[2024-03-05 11:11] VITALS: RESP 18; TEMP 97.7
[2024-03-05 11:32] VITALS: BP 113/60; PULSE 69
== END 2024-03-05 11:30 | disposition home or self-care (01) ==
LOC: FECT 07:57
PROVIDERS: ATTEND Student in an Organized Health Care Education/Training Program
PROC: GZB4ZZZ Other Electroconvulsive Therapy (ICD-10-PCS; principal; 2024-03-05 10:17)
DX: F32.A Depression, unspecified (principal)
CPT/HCPCS: 81025; 90870; 94760

== ENCOUNTER 2024-03-11 09:44 | Day surgery (SDC) | payer OTHER ==
[2024-03-05 16:55] VITALS: BMI 20.2
[2024-03-11] MEDS ORDERED: KETAMINE HCL 100 MG/ML - 5ML VIAL ONE (12:07)
[2024-03-11 12:49] VITALS: TEMP 97.3
[2024-03-11 13:41] VITALS: BP 115/78; PULSE 62; RESP 16
== END 2024-03-11 13:40 | disposition home or self-care (01) ==
LOC: FECT 09:44
PROVIDERS: ATTEND Student in an Organized Health Care Education/Training Program
PROC: GZB4ZZZ Other Electroconvulsive Therapy (ICD-10-PCS; principal; 2024-03-11 12:30)
DX: F32.A Depression, unspecified (principal)
CPT/HCPCS: 81025; 90870; 94760

== ENCOUNTER 2024-03-26 06:22 | Day surgery (SDC) | payer OTHER ==
[2024-03-18 11:04] VITALS: BMI 20.2
[2024-03-26] MEDS ORDERED: KETAMINE HCL 100 MG/ML - 5ML VIAL ONE (07:21)
[2024-03-26] MEDS ORDERED: MIDAZOLAM HCL 2 MG/2 ML SINGLE DOSE VIAL ONE (07:57)
[2024-03-26] MEDS ORDERED: MINERAL OIL/PETROLATUM,WHITE 3.5 GM TUBE ONE (08:24)
[2024-03-26 13:19] VITALS: TEMP 98
[2024-03-26 13:35] VITALS: BP 118/62; PULSE 73; RESP 17
== END 2024-03-26 09:30 | disposition home or self-care (01) ==
LOC: FECT 06:22
PROVIDERS: ATTEND Student in an Organized Health Care Education/Training Program
PROC: GZB4ZZZ Other Electroconvulsive Therapy (ICD-10-PCS; principal; 2024-03-26 07:52)
DX: F33.2 Major depressive disorder, recurrent severe without psychotic features (principal)
CPT/HCPCS: 81025; 90870; 94760

== ENCOUNTER 2024-04-02 08:31 | Day surgery (SDC) | payer OTHER ==
[2024-03-30 17:29] VITALS: BMI 20.2
[~2024-04-02 08:31] MED LIST: LACTATED RINGERS SOLUTION 1,000 ML IV SCH
[2024-04-02] MEDS ORDERED: PROPOFOL 20 ML ONE (10:14)
[2024-04-02] MEDS ORDERED: KETOROLAC TROMETHAMINE 30 MG/1 ML VIAL ONE (10:14)
[2024-04-02] MEDS ORDERED: ONDANSETRON 4 MG/2 ML VIAL ONE (10:14)
[2024-04-02] MEDS ORDERED: DEXAMETHASONE SOD PHOSPHATE 4 MG/1 ML VIAL ONE (10:14)
[2024-04-02] MEDS ORDERED: SUCCINYLCHOLINE CHLORIDE 200 MG/10 ML SYRINGE ONE (10:14)
[2024-04-02] MEDS ORDERED: KETAMINE HCL 100 MG/ML - 5ML VIAL ONE (10:14)
[2024-04-02 11:16] VITALS: PULSE 72; RESP 18; TEMP 97.8
[2024-04-02 11:55] VITALS: BP 124/80
== END 2024-04-02 11:37 | disposition home or self-care (01) ==
LOC: FECT 08:31 → FASU 08:31 → FECT 11:37
PROVIDERS: ATTEND Student in an Organized Health Care Education/Training Program
PROC: GZB4ZZZ Other Electroconvulsive Therapy (ICD-10-PCS; principal; 2024-04-02 10:21)
DX: F32.A Depression, unspecified (principal)
CPT/HCPCS: 81025; 90870; 94760

== ENCOUNTER 2024-04-09 06:55 | Day surgery (SDC) | payer OTHER ==
[2024-04-06 11:15] VITALS: BMI 20.2
[2024-04-09] MEDS ORDERED: ONDANSETRON 4 MG/2 ML VIAL IVPUSH PRN (08:31)
[2024-04-09] MEDS ORDERED: KETOROLAC TROMETHAMINE 30 MG/1 ML VIAL ONE (08:41)
[2024-04-09] MEDS ORDERED: ONDANSETRON 4 MG/2 ML VIAL ONE (08:41)
[2024-04-09] MEDS ORDERED: SUCCINYLCHOLINE CHLORIDE 200 MG/10 ML SYRINGE ONE (08:41)
[2024-04-09] MEDS ORDERED: PROPOFOL 20 ML ONE (08:41)
[2024-04-09] MEDS ORDERED: KETAMINE HCL 100 MG/ML - 5ML VIAL ONE (08:41)
[2024-04-09] MEDS ORDERED: LACTATED RINGERS SOLUTION 1,000 ML IV SCH (08:45)
[2024-04-09 09:31] VITALS: RESP 16; TEMP 98
[2024-04-09 10:07] VITALS: BP 110/65; PULSE 65
== END 2024-04-09 10:09 | disposition home or self-care (01) ==
LOC: FECT 06:55
PROVIDERS: ATTEND Student in an Organized Health Care Education/Training Program
PROC: GZB4ZZZ Other Electroconvulsive Therapy (ICD-10-PCS; principal; 2024-04-09 08:50)
DX: F32.A Depression, unspecified (principal)
CPT/HCPCS: 81025; 90870; 94760

== ENCOUNTER 2024-04-13 10:24 | Day surgery (SDC) | payer OTHER ==
[2024-04-12 13:02] VITALS: BMI 20.2
[2024-04-13] MEDS ORDERED: KETAMINE HCL 100 MG/ML - 5ML VIAL ONE (12:17)
[2024-04-13] MEDS ORDERED: PROPOFOL 20 ML ONE (12:18)
[2024-04-13 12:51] VITALS: TEMP 98.2
[2024-04-13 13:39] VITALS: BP 122/72; PULSE 92; RESP 16
== END 2024-04-13 13:35 | disposition home or self-care (01) ==
LOC: FECT 10:24
PROVIDERS: ATTEND Student in an Organized Health Care Education/Training Program
PROC: GZB4ZZZ Other Electroconvulsive Therapy (ICD-10-PCS; principal; 2024-04-13 12:24)
DX: F33.2 Major depressive disorder, recurrent severe without psychotic features (principal)
CPT/HCPCS: 81025; 90870; 94760

== ENCOUNTER 2024-04-16 09:26 | Day surgery (SDC) | payer OTHER ==
[2024-04-09 13:07] VITALS: BMI 20.2
[2024-04-16] MEDS ORDERED: KETAMINE HCL 100 MG/ML - 5ML VIAL ONE (11:16)
[2024-04-16 12:48] VITALS: RESP 18; TEMP 97.8
[2024-04-16 12:54] VITALS: BP 116/71; PULSE 72
== END 2024-04-16 12:57 | disposition home or self-care (01) ==
LOC: FECT 09:26
PROVIDERS: ATTEND Student in an Organized Health Care Education/Training Program
PROC: GZB4ZZZ Other Electroconvulsive Therapy (ICD-10-PCS; principal; 2024-04-16 11:47)
DX: F32.A Depression, unspecified (principal)
CPT/HCPCS: 90870; 94760

== ENCOUNTER 2024-04-22 10:14 | Day surgery (SDC) | payer OTHER ==
[2024-04-19 16:24] VITALS: BMI 20.2
[2024-04-22] MEDS ORDERED: KETAMINE HCL 100 MG/ML - 5ML VIAL ONE (12:13)
[2024-04-22] MEDS ORDERED: DEXAMETHASONE SOD PHOSPHATE 4 MG/1 ML VIAL ONE (12:14)
[2024-04-22] MEDS ORDERED: KETOROLAC TROMETHAMINE 30 MG/1 ML VIAL ONE (12:14)
[2024-04-22] MEDS ORDERED: ONDANSETRON 4 MG/2 ML VIAL ONE (12:14)
[2024-04-22 13:04] VITALS: RESP 20; TEMP 98
[2024-04-22 13:37] VITALS: BP 111/72; PULSE 72
== END 2024-04-22 13:25 | disposition home or self-care (01) ==
LOC: FECT 10:14
PROVIDERS: ATTEND Psychiatry & Neurology Psychiatry
PROC: GZB4ZZZ Other Electroconvulsive Therapy (ICD-10-PCS; principal; 2024-04-22 12:26)
DX: F32.A Depression, unspecified (principal)
CPT/HCPCS: 81025; 90870; 94760

== ENCOUNTER 2024-06-18 09:10 | Day surgery (SDC) | payer OTHER ==
[2024-06-14 15:13] VITALS: BMI 20.2
[2024-06-18] MEDS ORDERED: KETAMINE HCL 100 MG/ML - 5ML VIAL ONE (10:31)
[2024-06-18 10:48] LABS: HEMATOCRIT 44.3 % (32.4-45.2); HEMOGLOBIN 14.7 G/dL (10.7-15.3); MCH 31.2 pg (25.7-33.7); MCHC 33.1 g/dl (32.0-36.0); MEAN CELL VOLUME 94.2 fl (80-96); MEAN PLT VOLUME 8.7 fl (7.5-11.1); PLATELET COUNT 327.1 10^3/uL (134-434); RDW 14.3 % (11.6-15.6); WHITE BLOOD COUNT 7.1 10^3/uL (4.0-10.8)
[2024-06-18 10:56] LABS: ALBUMIN 5.2 g/dl (3.4-5.0); BILIRUBIN,TOTAL 0.9 mg/dl (0.2-1); CALCIUM 10.3 mg/dl (8.5-10.1); CREATININE 0.9 mg/dl (0.6-1.3); POTASSIUM 3.7 mmol/L (3.5-5.1)
[2024-06-18 11:05] VITALS: RESP 20; TEMP 97.6
[2024-06-18 12:20] VITALS: BP 108/74; PULSE 78
== END 2024-06-18 12:00 | disposition home or self-care (01) ==
LOC: FECT 09:10
PROVIDERS: ATTEND Student in an Organized Health Care Education/Training Program
PROC: GZB4ZZZ Other Electroconvulsive Therapy (ICD-10-PCS; principal; 2024-06-18 10:48)
DX: F32.A Depression, unspecified (principal)
CPT/HCPCS: 36415; 80053; 81025; 85027; 90870; 94760

== ENCOUNTER 2024-07-02 08:33 | Day surgery (SDC) | payer OTHER ==
[2024-07-02 09:39] VITALS: BMI 20.2
[2024-07-02] MEDS ORDERED: KETAMINE HCL 100 MG/ML - 5ML VIAL ONE (10:25)
[2024-07-02 11:03] VITALS: RESP 16
[2024-07-02 11:30] VITALS: BP 114/69; PULSE 79; TEMP 98.6
== END 2024-07-02 11:50 | disposition home or self-care (01) ==
LOC: FECT 08:33
PROVIDERS: ATTEND Student in an Organized Health Care Education/Training Program
PROC: GZB4ZZZ Other Electroconvulsive Therapy (ICD-10-PCS; principal; 2024-07-02 10:41)
DX: F32.A Depression, unspecified (principal)
CPT/HCPCS: 81025; 90870; 93005; 93010; 94760